=== PATIENT | female | born 1960 | race Caucasian/White ===

== ENCOUNTER 2017-03-25 11:40 | Emergency (ER) | payer OTHER, MEDICARE ==
[~2017-03-25] VITALS: Ht 152.4 cm; Wt 79.4 kg
[~2017-03-25 11:40] MED LIST: ACETAMINOPHEN-1 EAC2 PO; ADVAIR 500-501 EACH INH; ALBUTEROL2.5 MG/3 M INH/SOL; BACTRIM DS 8001 TAB PO; BENTYL20 MG PO; CEPHALEXIN500 MG PO; DELTASONE20 MG PO; FERROUS SULFAT325 M3 PO; FOLIC ACID1 M1 PO; FULL CIRCLE BIOT5 MG PO; HYDROXYZINE HCL50 M1 PO; KEFLEX500 MG PO; LISINOPRIL20 M1 PO; METHIMAZOLE5 M1 PO; NEXIUM40 M1 PO; OXYBUTYNIN CHLOR5 MG PO; OXYCODONE HCL5 M1 PO; OXYCONTIN15 M1 PO; PERCOCET 325 MG1 TA2 PO; PERCOCET 5-3251 EACH PO; PREDNISONE10 M2 PO; PREDNISONE10 MG PO; SINGULAIR10 M1 PO; TRAMADOL-ACETA1 EACH PO; TYLENOL #4 3001 TAB PO; ULTRACET 325 MG1 TAB PO; VITAMIN B-121000 MC3 PO; VITAMIN C500 M3 PO; VITAMIN D32000 I1 PO; ZOFRAN ODT4 MG PO; ZOFRAN4 M2 PO; [UNRECOGNIZED DRUG - OTHER] TOP
[2017-03-25] MEDS ORDERED: OXYBUTYNIN CHLOR5 M2 PO (12:22)
[2017-03-25] MEDS ORDERED: GABAPENTIN100 M2 PO (12:25)
[2017-03-25] MEDS ORDERED: CELECOXIB200 M1 PO (12:25)
[2017-03-25] MEDS ORDERED: COUMADIN2.5 M1 PO (12:26)
[2017-03-25] MEDS ORDERED: DIAZEPAM5 M1 PO (12:26)
--- NOTE | 2017-03-25 12:29 | ED UPPER/LOWER EXTREMITY COMPL ---
History of Present Illness General Chief Complaint: Lower Extremity Problems Stated Complaint: RT KNEE SURG X2WKS AGO ? INFECTION Source: patient Exam Limitations: no limitations Vital Signs & Intake/Output Vital Signs & Intake/Output Vital Signs Date Time Temp Pulse Resp B/P B/P Pulse O2 O2 Flow FiO2 Mean Ox Delivery Rate 03/25 1632 97.0 66 15 110/60 96 Room Air Room Air 03/25 1448 98.7 70 20 118/67 96 Room Air 03/25 1353 97.0 80 20 117/67 98 Room Air 03/25 1222 97.0 78 20 148/84 100 Room Air ED Intake and Output 03/26 0000 03/25 1200 Intake Total Output Total Balance Patient 175 lb Weight Weight Reported by Patient Measurement Method Allergies Coded Allergies: nut - unspecified (Severe, ANAPHYLAXIS 03/25/17) Reconcile Medications Acetaminophen With Codeine (Acetaminophen-Cod #4 Tablet) 300 MG-60 MG TABLET 1 TAB PO TID PRN PAIN (Reported) Albuterol Sulfate 2.5 MG/3 ML (0.083 %) VIAL.NEB 1 Vial INH/PELON Q4P PRN SHORTNESS OF BREATH (Reported) Augmentin (Augmentin 500-125 Tablet) 500 MG-125 MG TABLET 1 TAB PO TID INFECTION Celecoxib 200 MG CAPSULE 1 CAP PO DAILY PAIN (Reported) Cyanocobalamin (Vitamin B-12) 1,000 MCG TABLET 1 TAB PO DAILY VITAMIN SUPPORT (Reported) Diazepam 5 MG TABLET 1 TAB PO BIDP PRN UNKNOWN (Reported) Esomeprazole (Nexium) 40 MG CAPSULE.DR 1 CAP PO BID ACID REFLUX (Reported) Ferrous Sulfate 325 MG (65 MG IRON) TABLET 1 TAB PO BID SUPPLEMENT (Reported) Fluticasone/Salmeterol (Advair 500-50 Diskus) 500 MCG-50 MCG/DOSE BLST.W.DEV 1 PUF INH BID ASTHMA (Reported) Folic Acid (Unknown Strength) TABLET (Unknown Dose) PO DAILY SUPPLEMENT ( Reported) Gabapentin 100 MG CAPSULE 1 CAP PO BID PAIN (Reported) Lisinopril 20 MG TABLET 1 TAB PO DAILY BP (Reported) Methimazole 5 MG TABLET 1 TAB PO DAILY THYROID (Reported) Montelukast Sodium (Singulair) 10 MG TABLET 1 TAB PO QPM ALLERGIES (Reported) Oxybutynin Chloride 5 MG TABLET 1 TAB PO BID BLADDER (Reported) Oxycodone HCl 5 MG TABLET 1 TAB PO BIDP PRN PAIN (Reported) Oxycodone HCl (Oxycontin) 15 MG TAB.ER.12H 1 TAB PO TID PAIN (Reported) Prednisone 10 MG TABLET 1 TAB PO BID STEROID (Reported) Tramadol HCl/Acetaminophen (Tramadol-Acetaminophn 37.5-325) 37.5 MG-325 MG TABLET 1 TAB PO Q4-6 PRN PRN PAIN (Reported) Warfarin Sodium (Coumadin) 2.5 MG TABLET 3 TAB PO TID BLOOD THINNER (Reported ) Triage Note: PT TO ED FOR ?L KNEE INFECTION. PT HAD L KNEE REPLACEMENT OVER TWO WEEKS AGO. PT REPORTS THAT SHE HAD JACOBO IN THE KNEE FOR 15 DAYS, VISITING NURSE TOOK JACOBO OUT ON WEDNESDAY AND ?UNSURE IF ALL THE PIECES WERE REMOVED. DENIES FEVER OR CHILLS. +PAINFUL. +CMS TO LLE. WOUND NOT VIEWED IN TRIAGE. Triage Nurses Notes Reviewed? yes Onset: Gradual Duration: hour(s):, constant, continues in ED Severity: moderate Associated Symptoms: see hpi HPI: pt presents for eval of possible wound infection of left knee s/p knee replacement surgery. pt has noticed some redness and discharge from the proximal portion of the wound. the jacobo were removed at pod#14. pt states the rn commented that one the jacobo broke raising concern of retain metallic fb. pt denies fever or cold symptoms. Past History Travel History Traveled to [place] past 21 day No Medical History Any Pertinent Medical History? 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 No Review of Systems Review of Systems Constitutional: Reports: no symptoms. EENTM: Reports: no symptoms. Respiratory: Reports: no symptoms. Cardiovascular: Reports: no symptoms. Gastrointestinal/Abdominal: Reports: no symptoms. Genitourinary: Reports: no symptoms. Musculoskeletal: Reports: no symptoms. Skin: Reports: see HPI. Neurological/Psychological: Reports: no symptoms. Hematologic/Endocrine: Reports: no symptoms. Immunological: Reports: no symptoms. All Other Systems: Reviewed and Negative Physical Exam Physical Exam General Appearance: see below Comments: gen: wn, wd, no acute resp distress head: nc/at eyes: normal inspection ears: normal inspection nose: normal inspection throat/mouth: moist mucosa neck: supple, from, no goiter heart: rrr, no mrg lungs: normal respirations back: normal range of motion ext: R knee: slightly decreased ROM, wound intact with mild patchy erythema of wound with no discharge, no visible retained jacobo, no fluctuance, crepitus or violaceous discoloration. no erythema of knee joint. skin: warm and dry circulatory: normal radial pulses neuro: cn 2-12 grossly intact, speech clear psych: calm, cooperative, no apparent delusion, hallucinations or pressured speech Progress Differential Diagnosis: cellulitis, abscess Plan of Care: abx, follow up with pts orthopedic surgeon Diagnostic Imaging: Discussed w/RAD: Radiology Read. Radiology Impression: PATIENT: JOSE ROGERS PRESENT AGE: 56 PATIENT ACCOUNT NO: [id number] : 61 LOCATION: [facility] ORDERING PHYSICIAN: RAE LOPEZ MD SERVICE DATE: 03/25/17 EXAM TYPE: RAD - XRY-KNEE, LEFT EXAMINATION: XR KNEE, LEFT CLINICAL INFORMATION: Possible staple left in skin. COMPARISON: None TECHNIQUE: Two views of the left knee. FINDINGS: A total knee joint prosthesis is present. The prosthesis is in good position and there is no evidence of loosening. No fractures are seen. IMPRESSION: Right knee prosthesis in good position without complication. DICTATED BY: ARNAUD ALEXANDER MD DATE/TIME DICTATED:03/25/171402 ARBITRATOR:MARY DATE/TIME TRANSCRIBED:03/25/171402 CONFIDENTIAL, DO NOT COPY WITHOUT APPROPRIATE AUTHORIZATION. <Electronically signed in Other Vendor System> SIGNED BY: ARNAUD ALEXANDER MD 03/25/17 1413 Comments: 03/25/2017 4:42:30 PM patient's case discussed with Dr. Medina. Departure Departure Disposition: HOME OR SELF CARE Condition: Stable Clinical Impression Primary Impression: Wound infection Referrals: NINA HUSAIN MD (PCP/Family) Additional Instructions: Augmentin as prescribed. Follow-up with your surgeon tomorrow for reevaluation. Return if any concerns or sudden worsening. Departure Forms: Customer Survey General Discharge Information Prescriptions: Current Visit Scripts Augmentin (Augmentin 500-125 Tablet) 1 TAB PO TID #30 TAB
--- NOTE | 2017-03-25 14:13 | RADIOLOGY REPORT ---
EXAMINATION: XR KNEE, LEFT CLINICAL INFORMATION: Possible staple left in skin. COMPARISON: None TECHNIQUE: Two views of the left knee. FINDINGS: A total knee joint prosthesis is present. The prosthesis is in good position and there is no evidence of loosening. No fractures are seen. IMPRESSION: Right knee prosthesis in good position without complication.
[2017-03-25 16:32] VITALS: BP 110/60
[2017-03-25] MEDS ORDERED: AUGMENTIN 500-1 EACH PO (16:35)
== END 2017-03-25 16:58 ==
LOC: ERH 11:40
DX: T81.4XXA Infection following a procedure, initial encounter (principal)
CPT/HCPCS: 73560-LT

== ENCOUNTER 2017-05-07 14:16 | Emergency (ER) | payer OTHER, MEDICARE ==
[~2017-05-07] VITALS: Ht 152.4 cm; Wt 81.2 kg
[~2017-05-07 14:16] MED LIST changes: +AUGMENTIN 500-1 EACH PO; +CELECOXIB200 M1 PO; +COUMADIN2.5 M1 PO; +DIAZEPAM5 M1 PO; +GABAPENTIN100 M2 PO; +OXYBUTYNIN CHLOR5 M2 PO
--- NOTE | 2017-05-07 14:45 | ED HAND/WRIST INJURY COMPLAINT ---
History of Present Illness General Chief Complaint: Laceration Procedure Stated Complaint: lft hand lac Source: patient Exam Limitations: no limitations Vital Signs & Intake/Output Vital Signs & Intake/Output Vital Signs Date Time Temp Pulse Resp B/P B/P Pulse O2 O2 Flow FiO2 Mean Ox Delivery Rate 05/07 1419 97.7 108 19 170/93 97 Room Air Allergies Coded Allergies: nut - unspecified (Severe, ANAPHYLAXIS 03/25/17) Reconcile Medications Acetaminophen With Codeine (Acetaminophen-Cod #4 Tablet) 300 MG-60 MG TABLET 1 TAB PO TID PRN PAIN (Reported) Albuterol Sulfate 2.5 MG/3 ML (0.083 %) VIAL.NEB 1 Vial INH/PELON Q4P PRN SHORTNESS OF BREATH (Reported) Celecoxib 200 MG CAPSULE 1 CAP PO DAILY PAIN (Reported) Cephalexin (Keflex) 500 MG CAPSULE 1 CAP PO TID INFECTION Cyanocobalamin (Vitamin B-12) 1,000 MCG TABLET 1 TAB PO DAILY VITAMIN SUPPORT (Reported) Esomeprazole (Nexium) 40 MG CAPSULE.DR 1 CAP PO BID ACID REFLUX (Reported) Ferrous Sulfate 325 MG (65 MG IRON) TABLET 1 TAB PO BID SUPPLEMENT (Reported) Fluticasone/Salmeterol (Advair 500-50 Diskus) 500 MCG-50 MCG/DOSE BLST.W.DEV 1 PUF INH BID ASTHMA (Reported) Folic Acid (Unknown Strength) TABLET (Unknown Dose) PO DAILY SUPPLEMENT ( Reported) Gabapentin 100 MG CAPSULE 1 CAP PO BID PAIN (Reported) Lisinopril 20 MG TABLET 1 TAB PO DAILY BP (Reported) Methimazole 5 MG TABLET 1 TAB PO DAILY THYROID (Reported) Montelukast Sodium (Singulair) 10 MG TABLET 1 TAB PO QPM ALLERGIES (Reported) Oxybutynin Chloride 5 MG TABLET 1 TAB PO BID BLADDER (Reported) Oxycodone HCl 5 MG TABLET 1 TAB PO BIDP PRN PAIN (Reported) Oxycodone HCl (Oxycontin) 15 MG TAB.ER.12H 1 TAB PO TID PAIN (Reported) Prednisone 10 MG TABLET 1 TAB PO DAILY STEROID (Reported) Tramadol HCl/Acetaminophen (Tramadol-Acetaminophn 37.5-325) 37.5 MG-325 MG TABLET 1 TAB PO Q4-6 PRN PRN PAIN (Reported) Warfarin Sodium (Coumadin) 2.5 MG TABLET 3 TAB PO TID BLOOD THINNER (Reported ) Triage Note: PT STATES SHE WAS CUTTING A PIECE OF PLYWOOD WITH A SAW AND CUT 3 FINGERS LEFT HAND. PT NOT UTD WITH TETANUS Triage Nurses Notes Reviewed? yes Occurred: just prior to arrival Duration: minute(s): (few) Timing: single episode today Injury Environment: home Severity: mild, moderate Pain/Injury Location: Left: 2nd finger, 3rd finger, 4th finger. Method of Injury: ripsaw No Modifying Factors: none HPI: 56 year old female presents with left hand lacerations after being cut with a rip saw just prior to arrival. She was trying to cut a piece of wood to put over her ice box. Tetanus status is unclear. Patient is right hand dominant. Patient states bleeding has for the most part stopped. Denies any numbness or tingling. Past History Travel History Traveled to [facility] past 21 day No Medical History Any Pertinent Medical History? 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 No Review of Systems Review of Systems Constitutional: Denies: chills, fever. EENTM: Reports: no symptoms. Respiratory: Denies: short of breath. Cardiovascular: Denies: chest pain. GI: Reports: no symptoms. Genitourinary: Reports: no symptoms. Musculoskeletal: Reports: see HPI. Skin: Reports: no symptoms. Neurological/Psychological: Reports: no symptoms. Hematologic/Endocrine: Reports: bleeding. Denies: bruising. Immunologic/Allergic: Reports: no symptoms. All Other Systems: Reviewed and Negative Physical Exam Physical Exam General Appearance: well developed/nourished, awake, mild distress Head: atraumatic Eyes: Bilateral: PERRL, EOMI. Ears, Nose, Throat: normal pharynx, normal ENT inspection, hearing grossly normal Neck: normal inspection, supple Shoulder Left: normal range of motion, normal inspection Shoulder Right: normal range of motion, normal inspection Elbow Left: normal range of motion, normal inspection Elbow Right: normal range of motion, normal inspection Forearm Left: normal range of motion, normal inspection Forearm Right: normal range of motion, normal inspection Wrist Left: normal range of motion, normal inspection Wrist Right: normal range of motion, normal inspection Hand Left: normal range of motion, lacerations, 2nd finger (LAC), 3rd finger ( LAC), 4th finger (LAC) Hand Right: normal inspection, normal range of motion Neurologic/Tendon: normal sensation, normal motor functions, normal tendon functions Skin: intact, normal color, warm/dry Lymphatic: no anterior cervical britton Comments: NO TENDON DEFICIT, NORMAL SENSATION SEE LACERATION REPAIR Diagram Hands Front 1) LAC 2) LAC 3) LAC Progress Differential Diagnosis: LACERATION Plan of Care: Orders Procedure Date/time Status XRY-HAND, 2 Views LEFT 05/07 1444 Active Current Medications Sig/Dilshad Start time Last Medication Dose Stop Time Status Admin Ibuprofen 800 MG ONCE ONE 05/07 1445 UNVr (Motrin) 05/07 1446 Tetanus/Diphtheria 0.5 ML ONCE ONE 05/07 1445 UNVr Toxoids Adsorbed 05/07 1446 (Decavac) Diagnostic Imaging: Viewed by Me: Radiology Read. Discussed w/RAD: Radiology Read. Radiology Impression: PATIENT: JOSE ROGERS PRESENT AGE: 56 PATIENT ACCOUNT NO: [id number] : 61 LOCATION: [facility] ORDERING PHYSICIAN: FATOUMATA SWENSON MD SERVICE DATE: 05/07/17 EXAM TYPE: RAD - XRY-HAND, TWO VIEWS L EXAMINATION: XR HAND, LEFT CLINICAL INFORMATION: Soft tissue injury to left fingers. Clinical concern regarding fourth finger. COMPARISON: None TECHNIQUE: Frontal and lateral views of the left hand. FINDINGS : The lateral view allows Limited assessment of the fingers due to superimposition. There is no definite opaque foreign body. There is extensive soft tissue swelling greatest around the third PIP but also present at the second and fourth PIP. There is a severe erosive arthropathy. This manifests as marked erosion and irregularity of the distal radius and ulna with irregularity on both sides of the radiocarpal joint. Narrowing of the midcarpal joints and carpal metacarpal joints. There is some narrowing of the MCP joints with erosions involving the distal second and third metacarpals. There is narrowing of the IP joints with hypertrophic change. IMPRESSION: Limited study. No definite acute fracture or subluxation. Soft tissue swelling. Severe erosive arthropathy. Possibilities include rheumatoid arthritis. When patient condition allows consider supplementary repeat views including obliques and coned down views targeting the area of maximum clinical concern DICTATED BY: RITCHIE LU MD DATE/TIME DICTATED:05/07/171514 DRILL GRINDER:MARY DATE/TIME TRANSCRIBED:05/07/171514 CONFIDENTIAL, DO NOT COPY WITHOUT APPROPRIATE AUTHORIZATION. <Electronically signed in Other Vendor System> SIGNED BY: RITCHIE LU MD 05/07/17 1523 Departure Departure Time of Disposition: 1640 Disposition: HOME OR SELF CARE Condition: Stable Clinical Impression Primary Impression: Finger laceration Referrals: NINA HUSAIN MD (PCP/Family) Additional Instructions: TAKE THE KEFLEX DIRECTED. RETURN ON WEDNESDAY FOR A WOUND CHECK SUTURES WILL COME OUT IN 7-10 DAYS Departure Forms: Customer Survey General Discharge Information Prescriptions: Current Visit Scripts Cephalexin (Keflex) 1 CAP PO TID #30 CAP Procedures Laceration/Wound Repair Laceration/Wound Repair: 1 Wound Location: upper extremity (LEFT HAND) Wound's Depth, Shape: irregular Wound Length (cm): 2 Wound Explored: clean, no foreign body removed, irrigated extensively Irrigated w/ Saline (ccs): 200 Betadine Prep? Yes Anesthesia: 1% lidocaine Volume Anesthetic (ccs): 54 Wound Repaired With: sutures Suture Size/Type: 5:0 Number of Sutures: 5 Sterile Dressing Applied: Yes Splint Applied? Yes By Who? by me Date of Last Tetanus: 05/07/17 Laceration/Wound Repair: 2 Wound Location: LEFT FINGER Wound's Depth, Shape: linear Wound Length (cm): 1 Wound Explored: clean, no foreign body removed, irrigated extensively Irrigated w/ Saline (ccs): 50 Betadine Prep? Yes Anesthesia: 1% lidocaine Volume Anesthetic (ccs): 1 Wound Repaired With: sutures Suture Size/Type: 5:0 Number of Sutures: 2
--- NOTE | 2017-05-07 15:23 | RADIOLOGY REPORT ---
EXAMINATION: XR HAND, LEFT CLINICAL INFORMATION: Soft tissue injury to left fingers. Clinical concern regarding fourth finger. COMPARISON: None TECHNIQUE: Frontal and lateral views of the left hand. FINDINGS: The lateral view allows Limited assessment of the fingers due to superimposition. There is no definite opaque foreign body. There is extensive soft tissue swelling greatest around the third PIP but also present at the second and fourth PIP. There is a severe erosive arthropathy. This manifests as marked erosion and irregularity of the distal radius and ulna with irregularity on both sides of the radiocarpal joint. Narrowing of the midcarpal joints and carpal metacarpal joints. There is some narrowing of the MCP joints with erosions involving the distal second and third metacarpals. There is narrowing of the IP joints with hypertrophic change. IMPRESSION: Limited study. No definite acute fracture or subluxation. Soft tissue swelling. Severe erosive arthropathy. Possibilities include rheumatoid arthritis. When patient condition allows consider supplementary repeat views including obliques and coned down views targeting the area of maximum clinical concern
[2017-05-07] MEDS ORDERED: KEFLEX500 M1 PO (16:42)
[2017-05-07 16:59] VITALS: BP 166/88
== END 2017-05-07 17:00 ==
LOC: ERH 14:16
DX: S61.211A Laceration without foreign body of left index finger without damage to nail, initial encounter (principal); S61.213A Laceration without foreign body of left middle finger without damage to nail, initial encounter; S61.215A Laceration without foreign body of left ring finger without damage to nail, initial encounter; W27.0XXA Contact with workbench tool, initial encounter; Y92.9 Unspecified place or not applicable; Y93.9 Activity, unspecified
CPT/HCPCS: 73120-LT; 90471; 90714

== ENCOUNTER 2017-05-09 07:16 | Emergency (ER) | payer OTHER, MEDICARE ==
[~2017-05-09] VITALS: Ht 152.4 cm; Wt 81.2 kg
[~2017-05-09 07:16] MED LIST changes: +KEFLEX500 M1 PO
[2017-05-09 07:19] VITALS: BP 129/78
--- NOTE | 2017-05-09 07:45 | ED ANIMAL BITE/WOUND CHECK ---
History of Present Illness General Chief Complaint: Suture Removal/Wound Recheck Stated Complaint: WOUND CHECK Source: patient Exam Limitations: no limitations Vital Signs & Intake/Output Vital Signs & Intake/Output Vital Signs Date Time Temp Pulse Resp B/P B/P Pulse O2 O2 Flow FiO2 Mean Ox Delivery Rate 05/09 0719 98.6 86 18 129/78 98 Room Air Allergies Coded Allergies: nut - unspecified (Severe, ANAPHYLAXIS 03/25/17) Reconcile Medications Acetaminophen With Codeine (Acetaminophen-Cod #4 Tablet) 300 MG-60 MG TABLET 1 TAB PO TID PRN PAIN (Reported) Albuterol Sulfate 2.5 MG/3 ML (0.083 %) VIAL.NEB 1 Vial INH/PELON Q4P PRN SHORTNESS OF BREATH (Reported) Celecoxib 200 MG CAPSULE 1 CAP PO DAILY PAIN (Reported) Cephalexin (Keflex) 500 MG CAPSULE 1 CAP PO TID INFECTION Cyanocobalamin (Vitamin B-12) 1,000 MCG TABLET 1 TAB PO DAILY VITAMIN SUPPORT (Reported) Esomeprazole (Nexium) 40 MG CAPSULE.DR 1 CAP PO BID ACID REFLUX (Reported) Ferrous Sulfate 325 MG (65 MG IRON) TABLET 1 TAB PO BID SUPPLEMENT (Reported) Fluticasone/Salmeterol (Advair 500-50 Diskus) 500 MCG-50 MCG/DOSE BLST.W.DEV 1 PUF INH BID ASTHMA (Reported) Folic Acid (Unknown Strength) TABLET (Unknown Dose) PO DAILY SUPPLEMENT ( Reported) Gabapentin 100 MG CAPSULE 1 CAP PO BID PAIN (Reported) Lisinopril 20 MG TABLET 1 TAB PO DAILY BP (Reported) Methimazole 5 MG TABLET 1 TAB PO DAILY THYROID (Reported) Montelukast Sodium (Singulair) 10 MG TABLET 1 TAB PO QPM ALLERGIES (Reported) Oxybutynin Chloride 5 MG TABLET 1 TAB PO BID BLADDER (Reported) Oxycodone HCl 5 MG TABLET 1 TAB PO BIDP PRN PAIN (Reported) Oxycodone HCl (Oxycontin) 15 MG TAB.ER.12H 1 TAB PO TID PAIN (Reported) Prednisone 10 MG TABLET 1 TAB PO DAILY STEROID (Reported) Tramadol HCl/Acetaminophen (Tramadol-Acetaminophn 37.5-325) 37.5 MG-325 MG TABLET 1 TAB PO Q4-6 PRN PRN PAIN (Reported) Warfarin Sodium (Coumadin) 2.5 MG TABLET 3 TAB PO TID BLOOD THINNER (Reported ) Triage Note: 56 YO FEMALE TO ER FOR WOUND CHECK ON FINGERS ON L HAND. STATES SHE HAD SUTURED PLACED AND WAS PLACED ON ANTIBIOTICS. STATES WAS TOLD TO COME BACK IN TODAY TO GET HER FINGERS LOOKED AT. Triage Nurses Notes Reviewed? yes HPI: Patient presents for evaluation of a sutured laceration. Patient states she cut the left index and middle fingers on Wednesday and was seen in the emergency department and sutured. She was asked to return for a wound check. She is no specific complaints at this time and denies any signs of fever. She states that she is experiencing some numbness of the tip of the left middle finger but does still have sensation. Past History Travel History Traveled to [place] past 21 day No Medical History Any Pertinent Medical History? 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 No Review of Systems Review of Systems Constitutional: Reports: no symptoms. EENTM: Reports: no symptoms. Respiratory: Reports: no symptoms. Cardiovascular: Reports: no symptoms. GI: Reports: no symptoms. Genitourinary: Reports: no symptoms. Musculoskeletal: Reports: no symptoms. Skin: Reports: see HPI. Neurological/Psychological: Reports: see HPI. Hematologic/Endocrine: Reports: no symptoms. Immunologic/Allergic: Reports: no symptoms. All Other Systems: Reviewed and Negative Physical Exam Physical Exam General Appearance: sEE BELOW Comments: Gen.: Well-nourished, well-developed, no acute respiratory distress. Head: Normocephalic, atraumatic. Eyes: Normal inspection bilaterally Ears: Normal inspection bilaterally Nose: Normal inspection, nasal cannula in place Throat/mouth : Moist mucosa Neck: Supple, full range of motion, no goiter Heart: Regular rate and rhythm Lungs: Quiet respirations Back: Normal range of motion Extremities: Left hand: Sutured lacerations of the tips of the index and middle fingers. The wounds appear to be healing well with no signs of infection. The middle finger laceration does have a mild protrusion of subcutaneous tissue in the tip of the left middle finger does have sensation to light touch but the patient states it does not feel "normal". Neurologic: Cranial nerves grossly intact, speech is clear Skin: warm and dry Psychiatric: Calm, cooperative, no apparent delusions or hallucinations Progress Differential Diagnosis: abscess, cellulitis Plan of Care: Continue current care Departure Departure Disposition: HOME OR SELF CARE Condition: Stable Clinical Impression Primary Impression: Laceration of left index finger Qualifiers: Encounter type: subsequent encounter Damage to nail status: without damage Foreign body presence: without foreign body Qualified Code: S61.211D - Laceration without foreign body of left index finger without damage to nail, subsequent encounter Secondary Impressions: Laceration of left middle finger Qualifiers: Encounter type: subsequent encounter Damage to nail status: without damage Foreign body presence: without foreign body Qualified Code: S61.213D - Laceration without foreign body of left middle finger without damage to nail, subsequent encounter Referrals: NINA HUSAIN MD (PCP/Family) Additional Instructions: Continue your current wound care. Return to the emergency department in 10 days to have the sutures removed although the middle finger wound may need more time. Return immediately if any concerns or sudden worsening. Thank you for choosing the [facility] Emergency Department for your care. It was a pleasure to serve you today. Pratik Tineo M.D. [facility] Departure Forms: Customer Survey General Discharge Information
== END 2017-05-09 07:54 ==
LOC: ERH 07:16
DX: Z48.01 Encounter for change or removal of surgical wound dressing (principal)
CPT/HCPCS: 99281